=== PATIENT | female | born 1980 | race Caucasian/White ===

== ENCOUNTER → 2016-10-08 | Outpatient (CLI) | payer BC ==
--- NOTE | 2016-10-08 18:07 | US ---
Dear Dr. Wallace, Thank you for sending your patient, Lilia Parr, to us for a follow-up US to assess interval growth and amniotic fluid volume. As you know, the patient is a 36 y.o. G4, P2012 at 33 weeks and 2 days with an EDC of 11/24/16 based on LMP and 13 week US. Her is complicated by AMA and hist ory of low FRANCISCO (6-8 cm) and SGA neonates in her prior 2 pregnancies. At her last growth US at 29 week s, the FRANCISCO was 9 cm and the fetus measured in the 22%ile with all measurements aside from the AC less than 10 %ile. Genetic Screening: NIPT reassuring The patient denies any uterine contractions, vaginal bleeding, or loss of fluid. She reports excellen t movement. Today, she is without complaints. US FINDINGS: Number of fetuses: 1 Placental location: Posterior, no previa presentation: BREECH Cervix: Suboptimal FRANCISCO: 10.9 cm Measurements: Biparietal diameter: 74 mm, 29 weeks 5 days Head circumference: 294 mm, 32 weeks 3 days Abdominal circumference: 297 mm, 33 weeks 5 days Femur length: 59 mm, 30 weeks 6 days Humerus length: 51 mm, 30 weeks 0 days Transcerebellar diameter: 42 mm, 33 weeks 3 days Cerebral Lateral Ventricle: 3.1 mm Cisterna Magna: 7.1 mm Heart Rate: 125 bpm Average ultrasound age: 31 weeks 5 days Estimated weight: 1951 g weight percentile: 17 % Anatomy: anatomy was previously assessed. Today the following structures were visualized and appeared n ormal: lateral ventricles, posterior fossa, 4CH view, stomach, kidneys, and bladder. IMPRESSION: Growth: Today, the fetus measures appropriate for gestational age, measuring at a normal weight and p ercentile. All measurements aside from the AC continue to measure <10%ile. However, this represents a stable growth trajectory for this fetus. Visualization of the fetus continues to reveal no overt str uctural anomalies. There is evidence of normal amniotic fluid, and movement was seen during the examination. - Further US assessment is left to your clinical discretion with a low threshold for follow-up if the patient measures S<D Thank you again for sending this patient to see us today. Approximately 15 minutes were spent with th is patient today with 12 minutes of this time spent in direct face to face counseling regarding today 's US findings and our recommendations. Please contact me with any questions at . Katherine Howard MD Maternal- Medicine
--- NOTE | 2016-10-09 18:42 | US ---
Obstetric Ultrasound History: 36-year-old with estimated gestational age of 33 weeks 2 days and EDC of November 24, 2016. Comparison: OB ultrasound September 12, 2016. Findings: Number: 1 Presentation: Breech Placental location: Posterior. No previa. Cervix: Obscured by positioning. Maximum vertical pocket: 3.9 cm, with an FRANCISCO of 10.9 cm The right ovary is normal. The left ovary is not visible. Biometry: Biparietal diameter: 74 mm 29 weeks, 5 days Head circumference: 294 mm 32 weeks, 3 days Abdominal circumference: 297 mm 33 weeks, 5 days Femur length: 59 mm 30 weeks, 6 days Humerus length: 51 mm 30 weeks, 0 days Transcerebellar diameter: 42 mm 33 weeks, 3 days Average ultrasound age: 31 weeks, 5 days EDC based on today's average ultrasound age: December 05, 2016 Estimated weight is 1951 gms +/- 285 gms. The estimated weight percentile is 17% based on previous dating. With the exception of abdominal circumference, all growth parameters are in the les s than 10th percentile. Detailed anatomic survey was previously performed and is not repeated. heart rate is 125. The lateral ventricle, posterior fossa, four-chamber heart, left-sided stomach, kidneys and bladder are visualized and normal. Impression: 1. Living blankenship . EFW is 17th percentile, with all measurements except for abdominal cir cumference less than the 10th percentile similar to the prior study. 2. Unremarkable anatomy. Please see separate dictation for consultation performed by Katherine Howard MD, the [facility].
== END ==
LOC: FIMAGING 09:25
PROVIDERS: ATTEND Student in an Organized Health Care Education/Training Program
DX: Z36 Encounter for antenatal screening of mother (principal); O09.523 Supervision of elderly multigravida, third trimester; Z3A.33 33 weeks gestation of pregnancy; O32.1XX0 Maternal care for breech presentation, not applicable or unspecified

== ENCOUNTER 2016-11-18 05:35 | Inpatient (IN) | payer BC ==
[2016-11-18] MEDS ORDERED: CITRIC ACID/SODIUM CITRATE 30 ML UDCUP PO ONE (06:00)
[2016-11-18] MEDS ORDERED: ceFAZolin 2 GM/DEXTROSE 100 ML IV ONE (06:00)
[2016-11-18] MEDS ORDERED: LR 500 ML IV ONE (06:00)
[2016-11-18] MEDS: LR 1,000 ML IV SCH ×2 (06:00→13:31)
[2016-11-18] MEDS ORDERED: AMMONIA AROMATIC 1 EACH AMP IH ONE (06:08)
[2016-11-18] MEDS ORDERED: LIDOCAINE 1% 30 ML SDV ONE (06:08)
[2016-11-18] MEDS ORDERED: TERBUTALINE SULFATE 1 MG/ML VIAL ONE (06:08)
[2016-11-18] MEDS ORDERED: OXYTOCIN 10 UNIT/ML VIAL ONE (06:09)
[2016-11-18] MEDS ORDERED: MISOPROSTOL 200 MCG TAB ONE (06:09)
[2016-11-18 06:34] LABS: ADD DIFF? YES; ADD MORPH? NO; ADD SCAN? NO; ATYPICAL LYMPHOCYTE FLAG 20 (0-99); FRAGMENT RBC FLAG 0 (0-99); HEMATOCRIT 35.4 % (38.0-47.0); HEMOGLOBIN 12.2 g/dL (12.6-16.3); LEFT SHIFT FLG 20 (0-99); LIPEMIA HEMOLYSIS FLAG 90 (0-99); MEAN CELL HEMOGLOBIN 29.7 pg (27.9-34.1); MEAN CELL HEMOGLOBIN CONCENTR. 34.5 g/dL (32.4-36.7); MEAN CELL VOLUME 86.1 fL (81.5-99.8); MEAN PLATELET VOLUME 10.4 fL (8.7-11.7); PLATELET CLUMPS FLAG 10 (0-99); PLATELET COUNT 267 10^3/uL (150-400); RED BLOOD CELL COUNT 4.11 10^6/uL (4.18-5.33); RED CELL DISTRIBUTION WIDTH 13.2 % (11.5-15.2)
[2016-11-18] MEDS ORDERED: morphINE PF 5 MG/10 ML INJ ONE (07:33)
[2016-11-18] MEDS ORDERED: SIMETHICONE 80 MG TAB CHEW PO PRN (07:34)
[2016-11-18] MEDS ORDERED: fentaNYL 100 MCG/2 ML INJ ONE (07:34)
[2016-11-18] MEDS ORDERED: PROMETHAZINE HCL 25 MG/ML INJ IVP PRN (07:34)
[2016-11-18 07:36] LABS: PLATELET ESTIMATE ADEQUATE (ADEQ)
[2016-11-18] MEDS ORDERED: OXYTOCIN 100 UNITS/10 ML VIAL ONE (08:26)
[2016-11-18] MEDS ORDERED: ONDANSETRON 4 MG/2 ML VIAL ONE (08:27)
[2016-11-18] MEDS ORDERED: PHENYLEPHRINE HCL 100 MCG/ML SYR ONE ×2 (08:29→08:42)
--- NOTE | 2016-11-18 08:36 | OBPROC ---
- Delivery Pre-op Diagnoses: Breech presentation Post-op Diagnoses: Breech presentation Procedure: Repeat Surgeon: Comfort Wallace Matrix Drier Tender: Dinorah Yoon Anesthesiologist: Casper Sweeney Concierge Receptionist/INSTRUCTOR PHYSICAL: Florecita Richey Anesthesia: Spinal Complications: None Specimen(s)/Path: Fallopian Tube(s) IV Fluid (ml): 2,500 EBL: 700 - Info Infant A Delivery Date: 11/18/16 Delivery Time: 08:14 Sex of Infant: Female Score (1 Min): 8 Score (5 Min): 9
[2016-11-18] MEDS ORDERED: ONDANSETRON 4 MG/2 ML VIAL IVP PRN (09:04)
[2016-11-18] MEDS ORDERED: NALOXONE HCL 0.4 MG/ML INJ IVP PRN (09:04)
[2016-11-18] MEDS ORDERED: PHENYLEPHRINE HCL 100 MCG/ML SYR IVP PRN (09:04)
--- NOTE | 2016-11-18 09:11 | GOP ---
DATE OF OPERATION: 11/18/2016 SURGEON: Comfort Sunshine MD RETOUCHER: Dinorah Yoon, certified nurse pst supervisor. PREOPERATIVE DIAGNOSIS: Intrauterine at 39-1/7 weeks gestation with previous section, in breech presentation and desires sterility. POSTOPERATIVE DIAGNOSIS: Intrauterine at 39-1/7 weeks gestation with previous section, in breech presentation and desires sterility. PROCEDURE PERFORMED: Repeat low-transverse section and bilateral tubal ligation. FINDINGS: Viable female infant in chari breech presentation. 8 and 9. Normal uterus, fallopian tubes, and ovaries. SPECIMENS: Bilateral tubal segments. ESTIMATED BLOOD LOSS: 700 mL. INDICATIONS: The patient is a 36-year-old, G3, P2, female who was at 39-1/7 weeks gestation with breech presentation. Desired repeat low transverse section and bilateral tubal ligation. DESCRIPTION OF PROCEDURE: The patient was taken to the operating room. She was prepped and draped in normal sterile fashion in the dorsal supine position with leftward tilt. A surgical time-out was performed verifying the patient's name, date of , planned procedure, and site. The patient received 2 gm of Ancef preoperatively. A Pfannenstiel skin incision was made with a scalpel and carried through to the underlying fascia. The fascia was incised in the midline and extended laterally. The superior aspect of the fascia was grasped with Lori clamps. The rectus muscles dissected off bluntly and with the Bovie cautery. The inferior aspect of the fascia was grasped with Lori clamps. The rectus muscles dissected off bluntly and with the Bovie cautery. The peritoneum was identified and entered in bluntly. The peritoneum was divided. The bladder blade was placed. The vesicouterine peritoneum was incised with Metzenbaum scissors. The bladder flap was created digitally. The bladder blade was replaced. The uterus was incised with a scalpel. The uterine incision extended laterally with the bandage scissors and digitally. The was in chari breech presentation. The infant was delivered. The cord was clamped and cut. Cord blood was obtained. The infant was handed to the nurse practitioner. The placenta was delivered spontaneously. The uterus was exteriorized and cleared of all clots and debris. The uterine incision was reapproximated with 0 Monocryl in a running locked fashion. The right fallopian tube was grasped with a Jules clamp. The mesosalpinx was incised and then tube was transected and ligated. The same procedure was performed on the patient's left. The gutters were cleared of all clots and debris. The uterus was returned to the abdomen. The uterine incision was reinspected and noted to be hemostatic. The subfascial spaces were inspected and noted to be hemostatic. The fascia was reapproximated with 0 Vicryl in a running fashion. The subcutaneous tissue was irrigated and the skin was closed with 4-0 Monocryl. All counts were correct x2. COMPLICATIONS: None. OUTCOME: Stable to recovery room. /[id number]/MODL MTDD
--- NOTE | 2016-11-18 09:23 | PREANESOB ---
Obstetric Pre-Anesthesia Info - General Info Proposed Procedure: Repeat C Section : 4 Para: 2 WBD: 39 - Info Status: Full Term Monitors: External FHR Baseline (bpm): 130 FHR Pattern: Reassuring - Labor Status Indications for Current Section: Breech, Elective/Repeat Labor Epidural: No Anesthesia ROS: Prior C Section with spinal. History of occasional migraines. Allergies/Adverse Reactions: Allergy/AdvReac Type Severity Reaction Status Date / Time No Known Allergies Allergy Unverified 11/18/16 06:00 Visit Medications: Generic Name Dose Route Start Last Admin Trade Name Freq PRN Reason Stop Dose Admin Hydrocodone Bitart/Acetaminophen 1 - 2 tab 11/18/16 07:34 [place] 5/325 PO 11/28/16 07:33 Q4HRS PRN Pain, Moderate Diphenhydramine HCl 25 - 50 mg 11/18/16 09:04 Benadryl Injection IVP 05/17/17 09:03 Q6HRS PRN Itching Docusate Sodium 100 mg 11/18/16 07:34 Colace PO 05/17/17 07:33 BID PRN Constipation Lactated Ringer's 1,000 mls @ 125 mls/hr 11/18/16 06:00 11/18/16 06:00 Lr IV 05/17/17 05:59 1,000 mls CONT ALEIDA Administration Ibuprofen 600 mg 11/18/16 07:34 Motrin PO 05/17/17 07:33 Q6HRS PRN Inflammation Ketorolac Tromethamine 30 mg 11/18/16 12:00 Toradol IVP 11/19/16 06:01 Q6HRS ALEIDA Naloxone HCl 0.4 mg 11/18/16 09:04 Narcan IVP 11/19/16 09:11 PRN PRN respiratory depression Ondansetron HCl 4 mg 11/18/16 09:04 Zofran IVP 05/17/17 09:03 Q4HRS PRN Nausea/Vomiting, Can't Take PO Phenylephrine HCl 100 mcg 11/18/16 09:04 Anival-Synephrine IVP 11/18/16 10:04 Q1M PRN Hypotension Promethazine HCl 25 mg 11/18/16 07:34 Phenergan IVP 05/17/17 07:33 Q6HRS PRN Nausea/Vomiting, Use 1st Simethicone 80 mg 11/18/16 07:34 Mylicon PO 05/17/17 07:33 .TIDMEALS AND HS PRN Gas Discontinued Medications Generic Name Dose Route Start Last Admin Trade Name Robin PRN Reason Stop Dose Admin Ammonia (Aromatic Spirit) Confirm 11/18/16 06:08 Ammonia Aromatic Administered 11/18/16 06:09 Dose 1 each IH .STK-MED ONE Citric Acid/Sodium Citrate 30 ml 11/18/16 06:00 11/18/16 07:31 Bicitra PO 11/18/16 06:01 30 ml ONCALL ONE Administration Ephedrine Sulfate Confirm 11/18/16 06:08 Ephedrine Sulfate Administered 11/18/16 06:09 Dose 50 mg .ROUTE .STK-MED ONE Fentanyl Confirm 11/18/16 07:34 Sublimaze Administered 11/18/16 07:35 Dose 100 mcg .ROUTE .STK-MED ONE Cefazolin Sodium/Dextrose 100 mls @ 200 mls/hr 11/18/16 06:00 11/18/16 07:32 Ancef 2 Gm (Premix) IV 11/18/16 06:29 100 mls ONCALL ONE Administration Protocol Lactated Ringer's 500 mls @ 0 mls/hr 11/18/16 06:00 Lr IV 11/18/16 06:01 ONCE ONE As Directed Lidocaine HCl Confirm 11/18/16 06:08 Lidocaine Hcl 1% Administered 11/18/16 06:09 Dose 30 ml .ROUTE .STK-MED ONE Misoprostol Confirm 11/18/16 06:09 Cytotec Administered 11/18/16 06:10 Dose 1,000 mcg .ROUTE .STK-MED ONE Morphine Sulfate Confirm 11/18/16 07:33 Morphine Pf 5 Mg/10 Ml Administered 11/18/16 07:34 Dose 5 mg .ROUTE .STK-MED ONE Ondansetron HCl Confirm 11/18/16 08:27 Zofran Administered 11/18/16 08:28 Dose 8 mg .ROUTE .STK-MED ONE Oxytocin Confirm 11/18/16 06:09 Pitocin Administered 11/18/16 06:10 Dose 30 unit .ROUTE .STK-MED ONE Oxytocin Confirm 11/18/16 08:26 Pitocin Administered 11/18/16 08:27 Dose 100 units .ROUTE .STK-MED ONE Phenylephrine HCl Confirm 11/18/16 08:29 Anival-Synephrine Administered 11/18/16 08:30 Dose 1,000 mcg .ROUTE .STK-MED ONE Phenylephrine HCl Confirm 11/18/16 08:42 Anival-Synephrine Administered 11/18/16 08:43 Dose 1,000 mcg .ROUTE .STK-MED ONE Terbutaline Sulfate Confirm 11/18/16 06:08 Brethine Administered 11/18/16 06:09 Dose 1 mg .ROUTE .STK-MED ONE - Anesthesia History Response to Local Anesthetics: Normal Anesthesia & Operative History: No Prior Problems - Focused Exam Blood Pressure: 110/71 Heart Rate: 81 Respiratory Rate: 18 Height/Weight (Nursing): Height 167.64 cm Weight 56.245 kg Physical Exam: Within normal limits. ASA Status: II Labs: 11/18/16 05:58 Patient ABO/Rh O POSITIVE 11/18/16 05:58 - Plan Anesthetic Plan: SAB Consent Signed and on Chart: Yes Patient/Guardian Understands and Agrees to Plan: Yes
[2016-11-18] MEDS ORDERED: SCOPOLAMINE HYDROBROMIDE 1.5 MG PATCH TD ONE ×2 (09:24→09:26)
--- NOTE | 2016-11-18 09:28 | POSTANESTH ---
Post Anesthetic Evaluation Cardiovascular Status: Normal, Stable Respiratory Status: Normal, Stable, Similar to Pre-op Cond. Level of Consciousness/Mental Status: Can Participate in Eval, Alert and Oriented Pain Control: Adequate, Prn Tx Ordered Nausea/Vomiting Control: Adequate, Prn Tx Ordered Complications Possibly Related to Anesthesia: None Noted (Tolerated spinal well , BP treated, comfortable for surgery, to PACU, no pain or nausea.)
[2016-11-18] MEDS: KETOROLAC 30 MG/1 ML SDV IVP SCH ×2 (18:18→19:09)
[2016-11-18] MEDS: DOCUSATE SODIUM 100 MG CAP PO PRN (20:53)
[2016-11-19] MEDS: KETOROLAC 30 MG/1 ML SDV IVP SCH ×2 (00:20→06:05)
--- NOTE | 2016-11-19 08:16 | SOAPPROG ---
SOAP Progress Note Assessment/Plan: Assessment: 36 y.o. female POD #1 s/p repeat C/S. Doing well with good pain control. . Plan: Routine / post-op orders. Discontinue Sarmiento catheter, BC IV and remove abdominal bandage. Encourage ambulation. consult PRN. 11/19/16 08:12 Subjective: Reports feeling well with good pain control and minimal vaginal bleeding. Eating and drinking well without nausea or vomiting. Incision CDI. well without assistance. Appropriate mood with good support system. Objective: Vital Signs Temp Pulse Resp BP Pulse Ox 36.8 C 64 14 98/62 L 98 11/19/16 04:30 11/19/16 04:30 11/19/16 04:30 11/19/16 04:30 11/19/16 04:30 Laboratory Results 11/19/16 04:50 11/18/16 11/19/16 11/20/16 05:59 05:59 05:59 Intake Total 6600 Output Total 4850 Balance 1750 - Time Spent With Patient Time Spent With Patient: 20 minutes - Pending Discharge Pending Discharge Within 24 Hours: No Pending Discharge Within 48 Hours: Yes Pending Discharge Date: 11/21/16 Pending Discharge Time: 11:00 Physical Exam - Physical Exam General Appearance: WD/WN, alert, no apparent distress EENT: normal ENT inspection Neck: non-tender, full range of motion, supple, normal inspection Respiratory: lungs clear, normal breath sounds Cardiac/Chest: regular rate, rhythm Abdomen: non-tender, soft, other (incision cdi) Pelvic Exam: normal external exam Rectal: deferred Back: Normal inspection Skin: normal color, warm/dry Lymphatic: no adenopathy Extremities: normal range of motion, non-tender, normal inspection Neuro/Psych: alert, normal mood/affect, oriented x 3 ICD10 Worksheet Patient Problems: Problems Problem Status Onset Status post repeat low transverse section Acute - ICD10 Problem Qualifiers (1) Status post repeat low transverse section
[2016-11-19] MEDS ORDERED: PATCH REMOVAL 1 EA PATCH TD ONE (09:25)
[2016-11-19] MEDS: HYDROCODONE/APAP 5/325 TAB PO PRN ×3 (12:13→20:02)
[2016-11-19] MEDS: IRON POLYSAC/IRON HEME 28 MG TAB PO SCH (12:13)
[2016-11-19] MEDS: DOCUSATE SODIUM 100 MG CAP PO PRN ×2 (12:14→20:02)
[2016-11-19] MEDS: IBUPROFEN 600 MG TAB PO PRN ×2 (12:14→18:02)
[2016-11-20] MEDS: IBUPROFEN 600 MG TAB PO PRN ×2 (02:24→08:22)
[2016-11-20] MEDS: HYDROCODONE/APAP 5/325 TAB PO PRN ×2 (02:25→08:21)
--- NOTE | 2016-11-20 07:54 | OBGCSDC ---
General Delivery Information - General Info : 3 Para: 3 Delivery Date: 11/18/16 Delivery Time: 08:14 Delivery Physician/CNM: Comfort Wallace Hand Baseball Sewer: Dinorah Yoon Admission Date: 11/18/16 Labs: Patient ABO/Rh O POSITIVE 11/18/16 05:58 Hct 33.1 % (38.0-47.0) L 11/19/16 04:50 - Info A Sex of : Female Score (1 Min): 8 Score (5 Min): 9 - Delivery IUP (Weeks): 39 Number of Prior Sections: 1 Indications for Prior Section: Arrest of Descent Indications for Current Section: Breech Procedures: LTCS Intra-op Complications: None EBL: 700 Anesthesia: Spinal Discharge Information - Discharge Information Discharge Medications: Ibuprofen, Vitamins, Vicodin Condition: Good Instruction/Follow Up: Two Weeks Discharge Physician/CNM: Dinorah Yoon Discharge Date: 11/20/16 Dictated: No
[2016-11-20] MEDS: IRON POLYSAC/IRON HEME 28 MG TAB PO SCH (08:21)
[2016-11-20] MEDS: DOCUSATE SODIUM 100 MG CAP PO PRN (08:21)
[2016-11-20 13:02] VITALS: BP 105/62; PULSE 68; RESP 20; O2SAT 99
[2016-11-20 13:04] VITALS: TEMP 97.9
== END 2016-11-20 14:00 | disposition home or self-care (01) | DRG 766 ==
LOC: FLD 05:35 → FOB 11:02
PROVIDERS: ADMIT Obstetrics & Gynecology; ATTEND Obstetrics & Gynecology
DX: O32.1XX0 Maternal care for breech presentation, not applicable or unspecified (principal); O34.211 Maternal care for low transverse scar from previous cesarean delivery; Z3A.39 39 weeks gestation of pregnancy; Z37.0 Single live birth; Z30.2 Encounter for sterilization
CPT/HCPCS: J0690; J1885; J2274; J2370; J2405; J2590; J3010; J3105

== ENCOUNTER → 2016-12-10 | Outpatient (CLI) | payer BC | LOC: FLACT 09:47 | PROVIDERS: ATTEND Obstetrics & Gynecology | DX: O92.79 Other disorders of lactation (principal) | CPT/HCPCS: G0463 ==

== ENCOUNTER → 2017-11-01 | Outpatient (CLI) | payer BC | LOC: FIMAGING 07:50 | PROVIDERS: ATTEND Psychiatry & Neurology Neurology | DX: M85.38 Osteitis condensans, other site (principal); I87.1 Compression of vein; M51.37 Other intervertebral disc degeneration, lumbosacral region ==